=== PATIENT | female | born 1995 | race Caucasian/White ===

== ENCOUNTER 2018-09-12 11:28 | Emergency (ER) | payer OTHER ==
[~2018-09-12] VITALS: Ht 160 cm; Wt 52.2 kg
--- OUTSIDE RECORDS SUMMARY | 2018-09-12 11:33 | XMS REPORT ---
Author Author LADARIUS FLORES [facility] Address Unknown Care Team Providers Care Dog Groomer Name Role Phone LADARIUS FLORES Unavailable PROBLEMS Type Condition ICD9-CM Code IEF35-DG Code Onset Dates Condition Status SNOMED Code Problem Hair loss L65.9 Active 148812687 Problem Chronic fatigue R53.82 Active 04123533 Problem Hypercholesteremia E78.00 Active 16159834 ALLERGIES No Information ENCOUNTERS Encounter Location Date Diagnosis [facility] [address] [id number] Dec, [facility] [id number] [place] [address] July, [facility] [address] [address] Apr, [facility] [address] [address] Nov, Encounter to establish care with new doctor Z76.89 ; Chronic fatigue R53.82 ; Hair loss L65.9 and Vaginal candidiasis B37.3 [facility] [id number] [place] [address] Nov, [facility] [address] [address] Oct, Chronic fatigue R53.82 and Hair loss L65.9 [facility] [address] [id number] Sep, Dental examination V72.2 [facility] [id number] [place] [address] Sep, Headache 784.0 and Sinusitis 473.9 [facility] [id number] [place] [address] Nov, [facility] [id number] [address] Nov, [facility] [id number] [address] Nov, [facility] [id number] [address] Oct, [facility] [id number] [address] July, IMMUNIZATIONS No Known Immunizations SOCIAL HISTORY Never Assessed REASON FOR VISIT Dental appt PLAN OF CARE VITAL SIGNS MEDICATIONS Unknown Medications RESULTS No Results PROCEDURES No Known procedures INSTRUCTIONS MEDICATIONS ADMINISTERED No Known Medications
--- OUTSIDE RECORDS SUMMARY | 2018-09-12 11:33 | XMS REPORT ---
Author Author MAGOCRISTAALMA DELIA Organization [facility] [place] Address [address] [place] [address] Care Team Providers Care Director Of Search Engine Marketing Name Role Phone MERCEDESALMA DELIA Lyles Unavailable PROBLEMS Type Condition ICD9-CM Code OFJ38-JB Code Onset Dates Condition Status SNOMED Code Problem Hair loss L65.9 Active 312830883 Problem Chronic fatigue R53.82 Active 00690343 Problem Hypercholesteremia E78.00 Active 39379160 ALLERGIES No Information ENCOUNTERS Encounter Location Date Diagnosis [facility] [id number] [place] [address] July, [facility] [place] [address] [address] Apr, [facility] [place] [id number] [place] [address] Nov, Encounter to establish care with new doctor Z76.89 ; Chronic fatigue R53.82 ; Hair loss L65.9 and Vaginal candidiasis B37.3 [facility] [place] [id number] [place] [address] Nov, [facility] [place] [id number] [place] [address] Oct, Chronic fatigue R53.82 and Hair loss L65.9 [facility] [address] [place] [id number] Sep, Dental examination V72.2 [facility] [place] [address] [address] Sep, Headache 784.0 and Sinusitis 473.9 [facility] [place] [address] [address] Nov, [facility] [place] [address] [facility] [id number] [address] 08 Nov, 2013 [facility] [place] [address] [facility] [id number], [place] [address] Nov, [facility] [place] [address] [facility] [id number], [place] [address] Oct, [facility] [place] [address] [facility] [id number], [place] [address] July, IMMUNIZATIONS No Known Immunizations SOCIAL HISTORY Never Assessed REASON FOR VISIT triage JStrasserRN PLAN OF CARE VITAL SIGNS Height 53 in 2017-07-04 Weight 108 lbs 2017-07-04 Temperature 98.5 degrees Fahrenheit 2017-07-04 Heart Rate 84 bpm 2017-07-04 Respiratory Rate 20 2017-07-04 BMI 27.03 kg/m2 2017-07-04 Blood pressure systolic 100 mmHg 2017-07-04 Blood pressure diastolic 70 mmHg 2017-07-04 MEDICATIONS Unknown Medications RESULTS No Results PROCEDURES No Known procedures INSTRUCTIONS MEDICATIONS ADMINISTERED No Known Medications
--- OUTSIDE RECORDS SUMMARY | 2018-09-12 11:34 | XMS REPORT ---
Author Author MERCEDESALMA DELIA Lyles Organization [facility] Address [address] [place] [address] Care Team Providers Care Referral Coordinator Name Role Phone MERCEDESALMA DELIA Lyles Unavailable PROBLEMS Type Condition ICD9-CM Code ZAT56-ID Code Onset Dates Condition Status SNOMED Code Problem Hair loss L65.9 Active 527123994 Problem Chronic fatigue R53.82 Active 62321021 Problem Hypercholesteremia E78.00 Active 99789261 ALLERGIES No Known Allergies ENCOUNTERS Encounter Location Date Diagnosis [facility] [place] [id number] [place] [address] Apr, [facility] [place] [id number] [place] [address] Nov, Encounter to establish care with new doctor Z76.89 ; Chronic fatigue R53.82 ; Hair loss L65.9 and Vaginal candidiasis B37.3 [facility] [place] [id number] [place] [address] Nov, [facility] [place] [id number] [place] [address] Oct, Chronic fatigue R53.82 and Hair loss L65.9 [facility] [id number] [place] [id number] Sep, Dental examination V72.2 [facility] [place] [address] [address] Sep, Headache 784.0 and Sinusitis 473.9 [facility] [place] [id number] [place] [address] Nov, [facility] [place] [address] [address] 08 Nov, 2013 [facility] [place] [address] [facility] [id number], [place] [address] Nov, [facility] [place] [address] [facility] [id number], [place] [address] Oct, [facility] [place] [address] [facility] [id number], [place] [address] July, IMMUNIZATIONS No Known Immunizations SOCIAL HISTORY Never Assessed REASON FOR VISIT Establish Care---DYLANennettRAmy PLAN OF CARE Activity Details Follow Up 4 Weeks Reason:weight loss follow up VITAL SIGNS Height 53 in 2016-11-15 Weight 107 lbs 2016-11-15 Temperature 97.6 degrees Fahrenheit 2016-11-15 Heart Rate 80 bpm 2016-11-15 Respiratory Rate 20 2016-11-15 BMI 26.78 kg/m2 2016-11-15 Blood pressure systolic 102 mmHg 2016-11-15 Blood pressure diastolic 70 mmHg 2016-11-15 MEDICATIONS Medication Instructions Dosage Frequency Start Date End Date Duration Status Diflucan 150 MG Orally Once a day 1 tablet today and repeat in 7 days 24h Nov, Nov, 2 days Active RESULTS Name Result Date Reference Range VITAMIN B12 2016-11-15 Vitamin B12 498 211-946 FOLATE (FOLIC ACID) 2016-11-15 Folate (Folic Acid), Serum >20.0 >3.0 ESR/SED RATE 2016-11-15 Sedimentation Rate-Westergren 2 0-32 CRP 2016-11-15 C-Reactive Protein, Quant <0.3 0.0-4.9 VITAMIN D, 25-H 2016-11-15 Vitamin D, 25-Hydroxy 36.0 30.0-100.0 LIPID PANEL 2016-11-15 Cholesterol, Total 177 100-169 Triglycerides 75 0-89 HDL Cholesterol 61 >39 VLDL Cholesterol Geovani 15 5-40 LDL Cholesterol Calc 101 0-109 CMP 2016-11-15 Glucose, Serum 81 65-99 BUN 8 6-20 Creatinine, Serum 0.74 0.57-1.00 eGFR If NonAfricn Am 118 >59 eGFR If Africn Am 136 >59 BUN/Creatinine Ratio 11 9-23 Sodium, Serum 141 134-144 Potassium, Serum 4.1 3.5-5.2 Chloride, Serum 102 96-106 Carbon Dioxide, Total 24 18-29 Calcium, Serum 9.5 8.7-10.2 Protein, Total, Serum 6.7 6.0-8.5 Albumin, Serum 4.4 3.5-5.5 Globulin, Total 2.3 1.5-4.5 A/G Ratio 1.9 1.2-2.2 Bilirubin, Total 0.4 0.0-1.2 Alkaline Phosphatase, S 33 39-117 AST (SGOT) 12 0-40 ALT (SGPT) 15 0-32 HEPATITIS PROFILE 2016-11-15 Hep A Ab, IgM Negative Negative HBsAg Screen Negative Negative Hep B Core Ab, IgM Negative Negative Hep C Virus Ab <0.1 0.0-0.9 HIV (STATE) 2016-11-15 PROCEDURES Procedure Date Ordered Result Body Site VENIPUNCT, ROUTINE* Nov 15, 2016 COMPREHEN METABOLIC PANEL Nov 15, 2016 LIPID PANEL Nov 15, 2016 ACUTE HEPATITIS PANEL Nov 15, 2016 C-REACTIVE PROTEIN Nov 15, 2016 No Charge Nov 15, 2016 ASSAY OF VITAMIN D Nov 15, 2016 VITAMIN B-12 Nov 15, 2016 RBC SED RATE, AUTOMATED Nov 15, 2016 BLOOD FOLIC ACID SERUM Nov 15, 2016 INSTRUCTIONS MEDICATIONS ADMINISTERED No Known Medications
--- OUTSIDE RECORDS SUMMARY | 2018-09-12 11:34 | XMS REPORT | Continuity of Care Document ---
Author Organization Unknown Address Unknown Allergies There is no data. Medications There is no data. 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 Results Test Result Range HEPATITIS PROFILE - 11/15/16 10:31 Hep A Ab, IgM Negative Negative HBsAg Screen Negative Negative Hep B Core Ab, IgM Negative Negative Hep C Virus Ab <0.1 s/co ratio 0.0-0.9 GC/CHLAMYDIA (SWAB OR URINE)-RAPID - 06/12/18 11:55 CHLAMYDIA TRACHOMATIS RNA, TMA NOT DETECTED NOT DETECTED NEISSERIA GONORRHOEAE RNA, TMA NOT DETECTED NOT DETECTED COMMENT NRG GC/CHLAMYDIA (SWAB OR URINE)-RAPID - 07/23/18 15:07 CHLAMYDIA TRACHOMATIS RNA, TMA NOT DETECTED NOT DETECTED NEISSERIA GONORRHOEAE RNA, TMA NOT DETECTED NOT DETECTED COMMENT NRG Encounters ACCT No. Visit Date/Time Discharge Status Pt. Type Provider Facility Loc./Unit Complaint [id number] 06/12/2018 10:40:00 06/12/2018 23:59:59 CLS Outpatient SCAR GARCIA [facility] [id number] 07/23/2018 14:20:00 Document Registration [id number] 06/12/2018 10:40:00 Document Registration [id number] 11/15/2016 09:20:00 Document Registration [id number] 11/11/2010 14:41:00 11/11/2010 23:59:59 CLS Outpatient MARLENE GUAMAN DDS
--- OUTSIDE RECORDS SUMMARY | 2018-09-12 11:34 | XMS REPORT ---
Author Author MERCEDESALMA DELIA Lyles Organization [facility] Address [address] [place] [address] Care Team Providers Care Supervisor Purification Name Role Phone MERCEDESALMA DELIA Lyles Unavailable PROBLEMS Type Condition ICD9-CM Code RTV31-JZ Code Onset Dates Condition Status SNOMED Code Problem Hair loss L65.9 Active 059229239 Problem Chronic fatigue R53.82 Active 74050436 Problem Hypercholesteremia E78.00 Active 36049666 ALLERGIES No Known Allergies ENCOUNTERS Encounter Location Date Diagnosis [place] [address] [id number] [address] Jun, [facility] [address] [address] Apr, [facility] [id number] [place] [address] Nov, Encounter to establish care with new doctor Z76.89 ; Chronic fatigue R53.82 ; Hair loss L65.9 and Vaginal candidiasis B37.3 [id number] [place] [address] Nov, [facility] [id number] [place] [address] Oct, Chronic fatigue R53.82 and Hair loss L65.9 [facility] [address] [place] [id number] Sep, Dental examination V72.2 [address] [address] Sep, Headache 784.0 and Sinusitis 473.9 [address] [address] 08 Nov, 2013 [facility] [address] [facility] [id number] [place] [address] 08 Nov, 2013 [facility] [address] [facility] [id number] [place] [address] Nov, [facility] [address] [facility] [id number] [place] [address] Oct, [facility] [address] [facility] [id number] [place] [address] July, IMMUNIZATIONS No Known Immunizations SOCIAL HISTORY Never Assessed REASON FOR VISIT Fatigue/ hair loss x several months---Eneida, seen by PCP, Sheri Aguilera, fabi loya feels nothing was done and would like second opinion, has records PLAN OF CARE Activity Details Follow Up 4 Weeks Reason:est care VITAL SIGNS Height 53 in 2016-10-24 Weight 114 lbs 2016-10-24 Temperature 97.7 degrees Fahrenheit 2016-10-24 Heart Rate 80 bpm 2016-10-24 Respiratory Rate 20 2016-10-24 BMI 28.53 kg/m2 2016-10-24 Blood pressure systolic 98 mmHg 2016-10-24 Blood pressure diastolic 64 mmHg 2016-10-24 MEDICATIONS Unknown Medications RESULTS No Results PROCEDURES Procedure Date Ordered Result Body Site Hemoglobin Test Send Out 0 dollar Oct 24, 2016 COMPLETE CBC W/AUTO DIFF WBC Oct 24, 2016 ASSAY THYROID STIM HORMONE Oct 24, 2016 VENIPUNCT, ROUTINE* Oct 24, 2016 INSTRUCTIONS MEDICATIONS ADMINISTERED No Known Medications
--- OUTSIDE RECORDS SUMMARY | 2018-09-12 11:34 | XMS REPORT ---
Author Author CHARLI ZULETA Organization [employer] Address Unknown Phone Unavailable Care Team Providers Care Body Engineer Name Role Phone CHARLI ZULETA Unavailable Allergies No Known Allergies Problems Problem Type Condition ICD-9 Code Onset Dates Condition Status Assessment Dental examination V72.2 Active Medications No Known Medications Procedures Procedure Coding System Code Date PANORAMIC FILM SEE ALSO CODE 35775 CPT-4 D0330 September 29, 2014 LTD ORAL EVALUATION - PROBLEM FOCUS CPT-4 D0140 September 29, 2014 Results No Known Results Summary Purpose [employer] Submission
--- OUTSIDE RECORDS SUMMARY | 2018-09-12 11:34 | XMS REPORT ---
Author Author MERCEDESALMA DELIA Lyles Organization [facility] Address [address] [place] [address] Care Team Providers Care Deicer Repairer Electric Name Role Phone MERCEDESALMA DELIA Lyles Unavailable PROBLEMS Type Condition ICD9-CM Code HBD62-XZ Code Onset Dates Condition Status SNOMED Code Problem Hair loss L65.9 Active 506768006 Problem Chronic fatigue R53.82 Active 49597392 Problem Hypercholesteremia E78.00 Active 79328607 ALLERGIES No Known Allergies ENCOUNTERS Encounter Location Date Diagnosis [address] [id number] [address] Jun, [facility] [address] [address] Apr, [facility] [id number] [place] [address] Nov, Encounter to establish care with new doctor Z76.89 ; Chronic fatigue R53.82 ; Hair loss L65.9 and Vaginal candidiasis B37.3 [place] [id number] [place] [address] Nov, [facility] [id number] [place] [address] Oct, Chronic fatigue R53.82 and Hair loss L65.9 [facility] [address] [place] [id number] Sep, Dental examination V72.2 [place] [address] [address] Sep, Headache 784.0 and Sinusitis 473.9 [place] [address] [address] Nov, [facility] [address] [facility] [id number], [place] [address] Nov, [facility] [address] [facility] [id number], [place] [address] Nov, [facility] [address] [facility] [id number], [place] [address] Oct, [facility] [address] [id number], [place] [address] July, IMMUNIZATIONS No Known Immunizations SOCIAL HISTORY Never Assessed REASON FOR VISIT PMH obtained. TGrosdidijamilah RN PLAN OF CARE VITAL SIGNS MEDICATIONS Unknown Medications RESULTS No Results PROCEDURES No Known procedures INSTRUCTIONS MEDICATIONS ADMINISTERED No Known Medications
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
[2018-09-12] MEDS ORDERED: TRAM50TA2 PO (12:11)
[2018-09-12] MEDS ORDERED: CYCL10TA9 PO (12:11)
[2018-09-12 12:18] VITALS: BP 110/75
== END 2018-09-12 12:18 | disposition home or self-care (01) ==
LOC: ER FS 11:30
DX: S09.90XA Unspecified injury of head, initial encounter (principal); S13.4XXA Sprain of ligaments of cervical spine, initial encounter; R40.2142 Coma scale, eyes open, spontaneous, at arrival to emergency department; R40.2252 Coma scale, best verbal response, oriented, at arrival to emergency department; R40.2362 Coma scale, best motor response, obeys commands, at arrival to emergency department; V49.49XA Driver injured in collision with other motor vehicles in traffic accident, initial encounter
CPT/HCPCS: 99282